=== PATIENT | female | born 1995 | race Caucasian/White ===

== ENCOUNTER 2022-08-30 05:25 | Emergency (ER) | payer MEDICARE, OTHER ==
[2022-08-30 05:43] VITALS: TEMP 99; BMI 20.7
[2022-08-30] MEDS ORDERED: LACTATED RINGERS SOLUTION 1000 ML INFUS.BAG IV ONE ×2 (05:46→06:45)
[2022-08-30] MEDS ORDERED: ACETAMINOPHEN 1000 MG/100 ML BAG IVPB ONE (05:46)
[2022-08-30] MEDS ORDERED: DEXAMETHASONE SOD PHOSPHATE 10 MG/1 ML VIAL IVPUSH ONE (05:49)
[2022-08-30] MEDS ORDERED: ACETAMINOPHEN INJECTION 100 ML IVPB ONE (05:52)
[2022-08-30] MEDS ORDERED: DEXAMETHASONE SOD PHOSPHATE 10 MG/1 ML VIAL ONE (05:53)
[2022-08-30] MEDS ORDERED: ONDANSETRON 4 MG/2 ML VIAL ONE (05:58)
[2022-08-30] MEDS ORDERED: SODIUM CHLORIDE 0.9% 500 ML INFUS.BAG IV ONE (06:22)
[2022-08-30 07:14] VITALS: BP 98/68; PULSE 101; RESP 20
== END 2022-08-30 07:06 | disposition home or self-care (01) ==
LOC: JER 05:25
PROC: 3E033NZ Introduction of Analgesics, Hypnotics, Sedatives into Peripheral Vein, Percutaneous Approach (ICD-10-PCS; principal; 2022-08-30)
PROC: 3E033GC Introduction of Other Therapeutic Substance into Peripheral Vein, Percutaneous Approach (ICD-10-PCS; 2022-08-30)
DX: R50.9 Fever, unspecified (principal); R11.2 Nausea with vomiting, unspecified; R07.0 Pain in throat; J02.9 Acute pharyngitis, unspecified
CPT/HCPCS: 87070; 87651; 96374; 96375; 99284-25; J1100